=== PATIENT | male | born 1985 | race Caucasian/White ===

== ENCOUNTER 2019-01-22 12:19 | Emergency (ER) | payer OTHER, BC ==
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
== END 2019-01-22 12:38 | disposition home or self-care (01) ==
LOC: VM.ED 12:19
DX: S60.419A Abrasion of unspecified finger, initial encounter (principal); V59.9XXA Occupant (driver) (passenger) of pick-up truck or van injured in unspecified traffic accident, initial encounter
CPT/HCPCS: 99283